=== PATIENT | female | born 1985 | race Caucasian/White ===

== ENCOUNTER → 2018-02-16 | Outpatient (CLI) | payer OTHER | END | disposition home or self-care (01) | LOC: C.LABSPEC 11:05 | PROVIDERS: ATTEND Obstetrics & Gynecology | DX: O09.511 Supervision of elderly primigravida, first trimester (principal) ==

== ENCOUNTER → 2018-04-29 | Outpatient (CLI) | payer OTHER | END | disposition home or self-care (01) | LOC: C.LAB1850 09:17 | PROVIDERS: ATTEND Obstetrics & Gynecology | DX: O09.512 Supervision of elderly primigravida, second trimester (principal) ==

== ENCOUNTER 2018-10-05 07:45 | Inpatient (IN) ==
[2018-10-05] MEDS ORDERED: LACTATED RINGER'S 1,000 ML IV PRN ×3 (08:11→13:47)
[2018-10-05] MEDS ORDERED: OXYTOCIN 30 UNITS/500 ML BAG IV PRN ×3 (08:11→18:39)
[2018-10-05 08:31] LABS: Hematocrit (blood only) 31.5 % (37-47); Hemoglobin 10.8 g/dL (12.0-16.0); Mean Platelet Volume 8.8 fL (7.4-10.4); Platelet Count 236 K/uL (130-400); RDW Coefficient of Variation 13.2 % (11.5-14.5); RDW Standard Deviation 45.5 fL (36.4-46.3); Red Blood Count 3.35 M/uL (4.2-5.4); White Blood Count 10.28 K/uL (4.8-10.8)
[2018-10-05 08:35] LABS: Mean Corpuscular Hgb Conc 34.3 g/dL (32-36)
[2018-10-05] MEDS: LACTATED RINGER'S 1,000 ML IV SCH ×3 (09:21→18:01)
--- NOTE | 2018-10-05 09:46 | History & Physical Report ---
Date of Service October 05, 2018 Assessment & Plan (1) Encounter for induction of labor: Elective induction of labor Plan pitocin augmentation, arom as appropriate, epidural on request, anticipate (2) 40 weeks gestation of : elective induction of labor fetus category 1 History of Present Illness Chief Complaint: Induction of labor Primary Care Provider: NO PCP Makayla Berg is 33 year old, @ 40.1 weeks gestation that presents for elective induction of labor. EDC of 10/04/18 via LMP on 12/28/17. noted for velamentous insertion of umbilical cord. Blood type B-, GBS-, rubella immune. She has had care with [facility] since week 7 gestation x 15 appointments. She states she feels movement, no vaginal bleeding or leakage of fluid from vagina. She was here last night for ring balloon insertion. Elective induction of labor as mom with stage IV colon cancer who arrived [facility] yesterday with scheduled IOL today. Makayla denies fever, chills , nausea, vomiting, diarrhea, cough, chest pain, shortness of breath. Allergies Allergy/AdvReac Type Severity Reaction Status Date / Time doxycycline Allergy Rash Verified 10/05/18 08:26 Home Medications Home Medications Medication Instructions Recorded Confirmed Type vit-iron fum-folic ac 1 tab PO DAILY 10/04/18 10/05/18 History [ Vitamin] Patient History Medical History Migraine Ovarian cyst Velamentous insertion of umbilical cord [place] teeth removed Surgical History History of colposcopy Family History Mother Colon cancer Other Cancer Social History marital status: Current Living Situation: Spouse Other Information That Helps Us Care for You: No Feels Safe at Home: Yes Smoking Status: Never smoker Second Hand Exposure: No Hx Alcohol Use: No Hx Substance Use: No Beliefs That Will Affect Care: None Preferred Language: French Review of Systems All systems reviewed & are unremarkable except as noted in HPI & below Physical Exam 2 Vital Signs (Past 24 Hours): Last Vital Signs Temp 36.6 C 10/05/18 08:07 Pulse 82 10/05/18 09:21 Resp 18 01/07/19 08:07 BP 105/74 10/05/18 09:21 Constitutional: WD/WN, vitals as above cooperative Eyes: + anicteric sclerae Neck: normal visual inspection Respiratory: normal respiratory effort, lungs clear to auscultation Cardiovascular: RRR, no murmur, no edema Gastrointestinal (Abdomen): Percussion/Palpation: abdomen nontender gravid Skin: no rashes, warm and dry Neurologic: moves all extremities and awake Psychiatric: Orientation: alert Eye Contact: good eye contact Affect: euthymic affect Genitourinary: OB Exam Monitor Tracing: + external FHT monitor used, + external uterine monitor used and + category I Cervix exam performed by Dr. Griffith 3-4cm/90%/0, posterior cervix Results & Data Laboratory Results Laboratory Results - last 24 hr 10/05/18 08:21 WBC 10.28 RBC 3.35 L Hgb 10.8 L Hct 31.5 L MCV 94.0 MCH 32.2 MCHC 34.3 RDW Std Deviation 45.5 RDW Coeff of Bernie 13.2 Plt Count 236 MPV 8.8 Medications Administered Lactated Ringer's (Lr) 1,000 mls @ 125 mls/hr IV .Q8H JENNIFER Stop: 10/07/18 08:14 Last Admin: 10/05/18 09:21 Dose: 125 mls/hr Oxytocin (Pitocin) 30 units in 500 mls @ 3 mls/hr IV .Q24H PRN; Protocol PRN Reason: Labor Induction/Augmentation Stop: 11/04/18 08:11 Last Titration: 10/05/18 09:55 Dose: 0.18 units/hr, 3 mls/hr Admin: 10/05/18 09:22 Dose: 0.06 units/hr, 1 mls/hr Code Status & VTE Plan Code Status Full code Monitoring External Monitor Baseline 150 w/moderate variability, accels present, no decels Tocodynamometer Mild irregular contractions Supervising Physician Co-Signing Physician Notes Resident Physician Supervision Note: I was present with Dr. Jarred Lorenzo during the history and exam. I discussed the case with the resident and agree with the findings and plan as documented in the note. Any exceptions or clarifications are listed here: [None] Documented By: Sarah Griffith MD, FACOG
[2018-10-05] MEDS ORDERED: BUPIVACAINE 0.25% 30 ML VIAL ONE (13:08)
[2018-10-05] MEDS ORDERED: ePHEDrine sulfate 50 MG/ML AMP ONE (13:08)
[2018-10-05] MEDS ORDERED: fentaNYL citrate 100 MCG/2 ML VIAL ONE (13:08)
[2018-10-05] MEDS ORDERED: fentaNYL 2MCG/ML ROPIV 1.25MG/ML 100 ML BAG EPI ONE (13:09)
[2018-10-05] MEDS ORDERED: NALBUPHINE HCL INJ 10 MG/ML AMP IV PRN (13:47)
[2018-10-05] MEDS ORDERED: fentaNYL 2MCG/ML ROPIV 1.25MG/ML 100 ML BAG EPI PRN (13:47)
[2018-10-05] MEDS ORDERED: DiphenhydrAMINE HCL 50 MG/ML VIAL IV PRN (13:47)
[2018-10-05] MEDS ORDERED: ePHEDrine sulfate 50 MG/ML AMP IV PRN (13:47)
[2018-10-05] MEDS ORDERED: NALOXONE HCL 1 MG in SODIUM CHLORIDE 0.9% 1000ML 1,000 ML IV PRN (13:47)
[2018-10-05] MEDS ORDERED: NALOXONE HCL 0.4 MG/1 ML VIAL/CARP IV PRN (13:47)
[2018-10-05] MEDS ORDERED: ONDANSETRON INJ 2 MG/ML 2 ML VIAL IV PRN (13:47)
[2018-10-05] MEDS ORDERED: PROMETHAZINE HCL 6.25 MG in SODIUM CHLORIDE 0.9% 50 ML IV PRN (13:47)
--- NOTE | 2018-10-05 13:47 | Anesthesiology Consultation ---
Date of Service October 05, 2018 Assessment & Plan (1) Encounter for pre-operative examination: Chart Review Chart Review: Patient NOT seen in Pre Admission Testing and Acceptable Risk for Labor Epidural Consults Requested none ASA ASA2 Proposed Anesthesia Anesthesia Type: Labor Epidural Risk / Benefits Reviewed With: PT / POA / Parent / Guardian, Accepts Plan and Informed Consent Obtained NPO Date Last Intake of Fluids: 10/05/18 Time Last Intake of Fluids: 13:47 Date Last Intake of Solids: 10/05/18 Time Last Intake of Solids: 06:47 History Height/Weight Height: 5 ft 5 in Weight: 71.271 kg Allergies Allergy/AdvReac Type Severity Reaction Status Date / Time doxycycline Allergy Rash Verified 10/05/18 08:26 Medications Home Medications Medication Instructions Recorded Confirmed Last Taken vit-iron fum-folic ac 1 tab PO DAILY 10/04/18 10/05/18 10/05/18 06:45 [ Vitamin] Active Medications Generic Name Dose Route Start Last Admin Trade Name Freq PRN Reason Stop Dose Admin Lactated Ringer's 1,000 mls @ 999 mls/hr 10/05/18 08:11 10/05/18 13:15 Lr IV 11/04/18 08:10 999 mls/hr .Q1H1M PRN Administration (Pre-Anesthesia) Lactated Ringer's 1,000 mls @ 125 mls/hr 10/05/18 08:15 10/05/18 13:42 Lr IV 10/07/18 08:14 125 mls/hr .Q8H JENNIFER Administration Oxytocin 30 units in 500 mls @ 5 mls/hr 10/05/18 08:12 10/05/18 13:00 Pitocin IV 11/04/18 08:11 0.3 units/hr .Q24H PRN 5 mls/hr Labor Induction/Augmentation Titration Protocol 0.3 UNITS/HR Past Medical History Medical History Migraine Ovarian cyst Velamentous insertion of umbilical cord [place] teeth removed Past Family History Family History Mother Colon cancer Other Cancer Past Surgical History Surgical History History of colposcopy Social History Smoking Status: Never smoker Hx Alcohol Use: No Hx Substance Use: No substance use type: does not use Physical Exam Vital Signs Last Vital Signs Temp 36.8 C 10/05/18 11:53 Pulse 74 10/05/18 13:44 Resp 16 10/05/18 11:53 BP 97/54 L 10/05/18 13:44 Pulse Ox 100 10/05/18 13:42 ENMT Mouth: no dentition abnormality Thyromental Distance: > or= 3.5 Finger Breadths Mallampati Class: II Neck normal visual inspection; neck extension not limited Respiratory normal respiratory effort Auscultation: lungs clear to auscultation bilaterally Cardiovascular Rate/Rhythm: regular rate and regular rhythm Musculoskeletal Spine: normal cervical ROM Psychiatric Orientation: alert and oriented x 3 Testing Laboratory Results 10/05/18 08:21
[2018-10-05] MEDS ORDERED: BISACODYL 10 MG SUPP PR PRN (18:39)
[2018-10-05] MEDS ORDERED: DIPHTHERIA/TETANUS/PERTUSSIS 0.5 ML SYR/VIAL IM ONE (18:39)
[2018-10-05] MEDS ORDERED: OXYCODONE/ACETAMINOPHEN 5mg/325mg TAB PO PRN (18:39)
[2018-10-05] MEDS ORDERED: HYDROCORTISONE ACETATE 25 MG SUPP PR PRN (18:39)
[2018-10-05] MEDS ORDERED: SUPERCREAM 0.870% 15 GM JAR EXT PRN (18:39)
[2018-10-05] MEDS ORDERED: BENZOCAINE 20% AER SPR 82.5 GM CAN EXT PRN (18:39)
[2018-10-05 18:59] LABS: Base Excess Cord Arterial Bld -7.3 mEq/L (-9-1.8); CO2 Cord Arterial Blood 45 mmHg (39.1-73.5); HCO3 Cord Arterial Blood 20 mmol/L (19.7-28.5)
[2018-10-05 19:04] LABS: Base Excess Cord Venous Blood -4.9 mEq/L (-7.7-1.9); Cord Venous Blood HCO3 21 mmol/L (18.4-26.8); Cord Venous Blood PCO2 41 mmHg (30.4-57.2); Cord Venous Blood PO2 24 mmHg (14.1-43.3)
[2018-10-05 19:05] LABS: O2 Saturation Cord Venous Bld < 60.0 % (<68)
[2018-10-05 19:06] LABS: Cord Venous Blood pH 7.32 (7.20-7.44)
[2018-10-05 19:07] LABS: pH Cord Arterial Blood 7.26 (7.1-7.38)
--- NOTE | 2018-10-05 19:50 | Anesthesia Procedure Note ---
Date of Service October 05, 2018 Anesthesia Post Epidural Note Vital Signs Vital Signs: Temp Pulse Resp BP Pulse Ox 10/05/18 19:48 75 99 10/05/18 19:43 75 97/56 L 99 10/05/18 19:38 71 99 10/05/18 19:33 73 97/55 L 99 10/05/18 19:28 80 99 10/05/18 19:23 82 20 96/57 L 100 10/05/18 19:18 82 102/60 100 10/05/18 19:13 78 98 10/05/18 19:09 80 96/55 L 10/05/18 19:08 79 20 87/51 L 99 10/05/18 19:03 85 99 10/05/18 18:58 84 98 10/05/18 18:56 85 105/55 L 10/05/18 18:53 87 20 98 10/05/18 18:48 92 H 98 10/05/18 18:43 96 H 99 10/05/18 18:38 36.4 C L 84 20 104/59 L 98 10/05/18 18:33 92 H 98 10/05/18 18:30 100 H 109/58 L 10/05/18 18:28 104 H 100 10/05/18 18:23 125 H 74 L 10/05/18 18:20 93 H 80 L 10/05/18 18:18 124 H 99 10/05/18 18:13 90 100 10/05/18 18:12 102 H 83 L 10/05/18 18:08 100 H 99 10/05/18 18:05 98 H 86 L 10/05/18 18:02 96 H 96 10/05/18 18:00 93 H 104/55 L 10/05/18 17:59 96 H 88 L 10/05/18 17:57 100 H 81 L 10/05/18 17:53 93 H 88 L 10/05/18 17:52 91 H 100 10/05/18 17:48 108 H 83 L 10/05/18 17:47 101 H 100 10/05/18 17:46 137 H 103/57 L 10/05/18 17:42 133 H 69 L 10/05/18 17:40 22 10/05/18 17:37 90 100 10/05/18 17:35 104 H 121/64 90 10/05/18 17:32 124 H 100 10/05/18 17:30 103 H 84 L 10/05/18 17:27 91 H 97 10/05/18 17:24 84 90 10/05/18 17:22 87 100 10/05/18 17:18 84 92 10/05/18 17:17 82 100 10/05/18 17:16 93 H 133/74 10/05/18 17:12 66 100 10/05/18 17:07 72 100 10/05/18 17:02 69 113/71 100 10/05/18 17:00 36.4 C L 20 10/05/18 16:57 76 100 10/05/18 16:54 76 91 10/05/18 16:52 65 100 10/05/18 16:47 74 100 10/05/18 16:46 74 113/57 L 10/05/18 16:42 79 100 10/05/18 16:37 70 100 10/05/18 16:32 74 100 10/05/18 16:31 63 102/67 10/05/18 16:30 20 10/05/18 16:27 64 100 10/05/18 16:22 88 100 10/05/18 16:17 61 99/53 L 99 10/05/18 16:12 73 100 10/05/18 16:07 73 99 10/05/18 16:02 65 102/63 99 10/05/18 16:00 20 10/05/18 15:57 61 100 10/05/18 15:52 58 L 99 10/05/18 15:47 76 100 10/05/18 15:44 74 107/63 10/05/18 15:42 68 100 10/05/18 15:39 65 108/68 10/05/18 15:37 70 100 10/05/18 15:33 65 109/64 10/05/18 15:32 60 100 10/05/18 15:30 36.4 C L 20 10/05/18 15:28 62 108/66 10/05/18 15:27 60 100 10/05/18 15:23 64 104/66 10/05/18 15:22 61 100 10/05/18 15:18 61 106/66 10/05/18 15:17 75 100 10/05/18 15:13 63 106/64 10/05/18 15:12 67 100 10/05/18 15:09 71 109/63 10/05/18 15:07 64 100 10/05/18 15:03 73 106/67 91 10/05/18 15:02 71 100 10/05/18 14:58 67 96/55 L 10/05/18 14:57 68 100 10/05/18 14:52 63 104/66 99 10/05/18 14:47 64 106/67 100 10/05/18 14:45 18 10/05/18 14:43 62 102/62 10/05/18 14:42 61 100 10/05/18 14:39 62 105/57 L 10/05/18 14:37 65 100 10/05/18 14:33 62 106/57 L 10/05/18 14:32 64 100 10/05/18 14:30 18 10/05/18 14:28 63 102/66 10/05/18 14:27 64 100 10/05/18 14:26 60 88/68 L 10/05/18 14:24 65 87/57 L 10/05/18 14:22 66 97/55 L 99 10/05/18 14:20 64 104/65 10/05/18 14:18 60 98/72 L 10/05/18 14:17 62 100 10/05/18 14:16 64 94/61 L 10/05/18 14:14 58 L 105/63 10/05/18 14:12 64 102/63 100 10/05/18 14:10 60 102/64 10/05/18 14:08 68 102/63 10/05/18 14:07 66 100 10/05/18 14:06 60 103/65 10/05/18 14:04 64 106/62 10/05/18 14:02 73 106/63 100 10/05/18 14:00 63 16 100/59 L 10/05/18 13:58 61 99/57 L 10/05/18 13:57 63 100 10/05/18 13:56 63 99/66 L 10/05/18 13:54 65 107/65 10/05/18 13:52 70 102/64 100 10/05/18 13:50 69 107/63 10/05/18 13:48 36.5 C 72 16 100/64 10/05/18 13:47 71 100 10/05/18 13:46 68 100/58 L 10/05/18 13:45 18 10/05/18 13:44 74 97/54 L 10/05/18 13:42 71 95/50 L 100 10/05/18 13:40 73 104/61 10/05/18 13:38 74 106/58 L 10/05/18 13:37 73 100 10/05/18 13:32 78 100 10/05/18 13:27 81 100 10/05/18 13:22 70 100 10/05/18 13:17 66 100 10/05/18 13:12 70 100 10/05/18 12:51 75 122/67 10/05/18 11:54 68 101/67 10/05/18 11:53 36.8 C 16 10/05/18 10:50 78 110/73 10/05/18 10:40 37.0 C 10/05/18 09:21 82 105/74 10/05/18 08:07 36.6 C 78 18 113/68 Pain Intensity Abdomen: Pain Intensity: 8 Notes Mental Status: alert / awake / arousable Nausea / Vomiting: adequately controlled Pain: adequately controlled Airway Patency, RR, SpO2: stable & adequate BP & HR: stable & adequate Hydration State: stable & adequate Anesthetic Complications: no major complications apparent and Pt Satisfied with anesthetic care Epidural: Removed without complications and With tip intact
--- NOTE | 2018-10-05 19:54 | Delivery Summary ---
DATE OF OPERATION: 10/05/2018 VAGINAL DELIVERY NOTE The patient had a velamentous cord and was 40 weeks and was induced at patient request. A cervical Mckeon bulb the night before by Dr. Rubio and Pitocin was started. She progressed to 4 cm. AROM was performed for clear fluid then she requested epidural. She then progressed to fully dilation and delivered over a second-degree tear in occiput anterior position. Mouth and the nares suctioned. No nuchal cord. Gentle traction. No excessive force. Live vigorous female infant. Delayed cord clamping. Cord was eventually clamped and then cut. Cord gas was obtained. Cord blood obtained. Placenta removed with traction. IV Pitocin started. Second degree tear repaired with 3-0 Vicryls. Sponge and instrument counts correct. Rectal exam negative for defects or sutures. Estimated blood loss 115 mL. I attest to the content of the Intraoperative Record and any orders documented therein. Any exception s are noted below.
[2018-10-06] MEDS: IBUPROFEN 600 MG TAB PO PRN ×6 (00:16→22:28)
--- NOTE | 2018-10-06 07:37 | Obstetrical Progress Note ---
Date of Service October 06, 2018 day #1 from vaginal delivery patient does have some discomfort in her perineum but is tolerating well with minimal bleeding no extremity pain Assessment & Plan (1) 40 weeks gestation of : Continue current care Physical Exam Vital Signs (Past 24 Hours) Last Vital Signs Temp 36.5 C 10/06/18 03:35 Pulse 71 10/06/18 03:35 Resp 18 10/06/18 03:35 BP 94/58 L 10/06/18 03:35 Pulse Ox 98 10/06/18 00:15 Uterus nontender firm extremity exam negative
[2018-10-06 08:27] LABS: Hematocrit (blood only) 29.1 % (37-47); Hemoglobin 9.9 g/dL (12.0-16.0); Mean Corpuscular Volume 93.6 fL (80-100); Mean Platelet Volume 8.7 fL (7.4-10.4); Platelet Count 214 K/uL (130-400); RDW Coefficient of Variation 13.3 % (11.5-14.5); Red Blood Count 3.11 M/uL (4.2-5.4); White Blood Count 15.72 K/uL (4.8-10.8)
[2018-10-06] MEDS: PRENATAL VITAMIN 1 TAB PO SCH (09:34)
[2018-10-06] MEDS: DOCUSATE SODIUM 100 MG CAP PO SCH ×3 (09:36→20:01)
[2018-10-06] MEDS ORDERED: BISACODYL 5 MG TABEC PO SCH (20:00)
[2018-10-06] MEDS: ACETAMINOPHEN 325 MG TAB PO PRN (20:02)
--- NOTE | 2018-10-06 22:04 | Anesthesiology Progress Note ---
Date of Service October 06, 2018 Anesthesia Post Procedure Vital Signs Vital Signs: Temp Pulse Resp BP Pulse Ox 10/06/18 17:26 36.6 C 86 16 101/68 99 10/06/18 13:50 36.9 C 81 18 99/64 L 98 10/06/18 07:45 36.5 C 85 16 100/63 98 10/06/18 03:35 36.5 C 71 18 94/58 L 10/06/18 00:15 36.6 C 84 18 108/62 98 10/05/18 22:05 36.7 C 72 18 106/67 99 Pain Intensity Abdomen: Pain Intensity: 5 Notes Mental Status: alert / awake / arousable Nausea / Vomiting: adequately controlled Pain: adequately controlled Airway Patency, RR, SpO2: stable & adequate BP & HR: stable & adequate Hydration State: stable & adequate Neuraxial Anesthesia: sensory block resolved Anesthetic Complications: no major complications apparent Notes: Called to see patient for back pain. Patient reports pain along the sides of her back and wrapping around to her ribs. She has localized tenderness over the insertion site from her epidural, but denies any other pain along her spine. In addition, she reports decreased sensation when she needs to urinate, but is able to urinate when she tries. She denies any evidence of incontinence. She has been ambulating without difficulty and denies any weakness or change in sensation in her lower extremities. She denies a headache at this time. Her epidural insertion site is C/D/I without evidence of bruising or bleeding. I suspect the patient�s symptoms are musculoskeletal in origin and secondary to pushing for her vaginal delivery. I reassured the patient that this is unlikely to be an epidural related complication. She was instructed to call if she develops pain along her spine, lower extremity weakness or loss of sensation, incontinence, or headache.
[2018-10-07 07:19] LABS: Hematocrit (blood only) 28.5 % (37-47); Hemoglobin 9.5 g/dL (12.0-16.0)
--- NOTE | 2018-10-07 08:16 | Obstetrical Progress Note ---
Date of Service <Jarred Lorenzo - Last Filed: 10/07/18 08:16> October 07, 2018 Assessment & Plan <Jarred Lorenzo - Last Filed: 10/07/18 08:16> (1) Vaginal delivery: 33 y/o , vaginal delivery at 40.1 weeks, B-, GBS - - PPD #2 - reviewed discharge instructions at bedside, continue routine post- care until discharge later home today (2) Encounter for induction of labor: Elective induction of labor Plan pitocin augmentation, arom, (3) 40 weeks gestation of : elective induction of labor Day #:: 2 Subjective <Jarred Lorenzo - Last Filed: 10/07/18 08:16> Ambulation: ambulating normally Voiding: no voiding problems Passing Gas:: Yes Diet Tolerance:: regular diet Lochia:: Small Feeding Type:: breast feeding Current Pain Level(1-10): 0 Makayla states she is doing well today, no acute concerns. No fevers, chills, shortness of breath, chest pain, nausea, vomiting. Physical Exam <Jarred Lorenzo - Last Filed: 10/07/18 08:16> Vital Signs (Past 24 Hours) Last Vital Signs Temp 36.5 C 10/07/18 07:46 Pulse 82 10/07/18 07:46 Resp 16 10/07/18 07:46 BP 106/67 10/07/18 07:46 Pulse Ox 99 10/06/18 17:26 Constitutional WD/WN, vitals as above cooperative Eyes + anicteric sclerae Neck normal visual inspection Respiratory normal respiratory effort, lungs clear to auscultation Cardiovascular RRR, no murmur, no edema Gastrointestinal (Abdomen) Percussion/Palpation: abdomen nontender fundus is firm,non-tender, 3cm below umbilicus Skin no rashes, warm and dry Neurologic moves all extremities and awake Psychiatric Orientation: alert Eye Contact: good eye contact Affect: euthymic affect Results & Data <Jarred Lorenzo - Last Filed: 10/07/18 08:16> Laboratory Results Laboratory Results - last 24 hr 10/06/18 10/07/18 08:12 07:08 WBC 15.72 H RBC 3.11 L Hgb 9.9 L 9.5 L Hct 29.1 L 28.5 L MCV 93.6 MCH 31.8 MCHC 34.0 RDW Std Deviation 45.0 RDW Coeff of Bernie 13.3 Plt Count 214 MPV 8.7 Medications Administered Acetaminophen (Tylenol) 650 mg PO Q6H PRN PRN Reason: Pain/DING/Fever Stop: 11/04/18 18:38 Last Admin: 10/06/18 20:02 Dose: 650 mg Benzocaine (Dermoplast Pain Relieving [place]) 1 appln EXT PRN PRN PRN Reason: Perineal Discomfort Stop: 11/04/18 18:38 Last Admin: 10/06/18 00:16 Dose: 1 appln Docusate Sodium (Colace) 100 mg PO BID [facility] Stop: 11/04/18 20:59 Last Admin: 10/06/18 20:01 Dose: 100 mg Admin: 10/06/18 09:36 Dose: 100 mg Admin: 10/06/18 09:36 Dose: Not Given Lactated Ringer's (Lr) 1,000 mls @ 999 mls/hr IV .Q1H1M PRN PRN Reason: (Pre-Anesthesia) Stop: 11/04/18 08:10 Last Infusion: 10/05/18 14:16 Dose: 0 mls/hr Admin: 10/05/18 13:15 Dose: 999 mls/hr Lactated Ringer's (Lr) 1,000 mls @ 125 mls/hr IV .Q8H [facility] Stop: 10/07/18 08:14 Last Admin: 10/05/18 18:01 Dose: 125 mls/hr Infusion: 10/05/18 17:38 Dose: 125 mls/hr Infusion: 10/05/18 15:05 Dose: 125 mls/hr Infusion: 10/05/18 15:03 Dose: 999 mls/hr Infusion: 10/05/18 14:30 Dose: 999 mls/hr Admin: 10/05/18 13:42 Dose: 125 mls/hr Infusion: 10/05/18 13:16 Dose: Admin: 10/05/18 09:21 Dose: 125 mls/hr Oxytocin (Pitocin) 30 units in 500 mls @ 333 mls/hr IV .Q24H PRN; Protocol PRN Reason: Labor Induction/Augmentation Stop: 11/04/18 08:11 Last Titration: 10/05/18 20:01 Dose: 0 units/hr, 0 mls/hr Titration: 10/05/18 18:36 Dose: 19.98 units/hr, 333 mls/hr Titration: 10/05/18 15:38 Dose: 0.3 units/hr, 5 mls/hr Titration: 10/05/18 15:03 Dose: 0.54 units/hr, 9 mls/hr Titration: 10/05/18 14:47 Dose: 0.54 units/hr, 9 mls/hr Titration: 10/05/18 14:03 Dose: 0.42 units/hr, 7 mls/hr Titration: 10/05/18 13:00 Dose: 0.3 units/hr, 5 mls/hr Titration: 10/05/18 09:55 Dose: 0.18 units/hr, 3 mls/hr Admin: 10/05/18 09:22 Dose: 0.06 units/hr, 1 mls/hr Ibuprofen (Motrin) 600 mg PO Q4H PRN PRN Reason: Pain/DING/Cramping/Fever Stop: 11/04/18 18:38 Last Admin: 10/06/18 22:28 Dose: 600 mg Admin: 10/06/18 17:11 Dose: 600 mg Admin: 10/06/18 12:37 Dose: 600 mg Admin: 10/06/18 07:32 Dose: 600 mg Admin: 10/06/18 03:56 Dose: 600 mg Admin: 10/06/18 00:16 Dose: 600 mg Prenat Multivit/[place]/Iron/Folic Ac ( Vitamin) 1 tab PO QAM JENNIFER Stop: 11/05/18 08:59 Last Admin: 10/06/18 09:34 Dose: 1 tab <Gloria Falcon MD, FACOG - Last Filed: 10/07/18 08:32> Co-Signing Physician Notes Resident Physician Supervision Note: I interviewed and examined the patient. Discussed with Dr. Lorenzo and agree with findings and plan as documented in the note. Any exceptions or clarifications are listed here: Doing well. PLan d/c. Instructions given. Documented By: Gloria Falcon MD, FACOG
[2018-10-07] MEDS: DOCUSATE SODIUM 100 MG CAP PO SCH (09:15)
[2018-10-07] MEDS: PRENATAL VITAMIN 1 TAB PO SCH (09:15)
[2018-10-07] MEDS: ACETAMINOPHEN 325 MG TAB PO PRN (10:59)
== END 2018-10-07 15:50 | disposition home or self-care (01) | DRG 807 ==
LOC: 4S1 07:45 → 4S2 22:10